=== PATIENT | female | born 1935 | race Caucasian/White ===

== ENCOUNTER 2017-03-14 22:41 | Inpatient (IN) | payer OTHER ==
[~2017-03-14] VITALS: Ht 152.4 cm; Wt 59.0 kg
[~2017-03-14 22:41] MED LIST: AMITRIPTYLINE H25 MG PO; ASPIRIN81 M2 PO; ATIVAN1 MG PO; BABY ASPIRIN81 MG PO; HYDROCHLOROTH12.5 M3 PO; HYDROCODON-ACE1 EAC7 PO; LORAZEPAM1 MG PO; LOVENOX40 MG/0.4 SC; METOCLOPRAM5 MG/1 M1 PO; MILK OF MAGNESI10 ML PO; POTASSIUM CHLO10 ME4 PO; PRAVASTATIN SOD40 MG PO; SENNA-TIME S T1 EACH PO; THERAGRAN1 TABLET PO; TOPROL XL25 MG PO
[2017-03-14 23:06] LABS: HEMATOCRIT 44.3 % (36.0-46.0); MCH 31.5 PG (29.0-34.0); MCV 95.7 FL (83-99); MEAN PLAT.VOLUME 10.3 uM^3 (9.5-12.4); PLATELET COUNT 257 K/uL (156-360); RBC DIS.WIDTH-CV 13.5 % (11.8-14.6); RBC DIS.WIDTH-SD 47.5 % (39-53); RED BLOOD COUNT 4.63 M/uL (3.80-5.20); WHITE BLOOD COUNT 21.9 K/uL (4.1-10.2)
[2017-03-14 23:17] LABS: CHLORIDE 102 mEq/L (99-109); POTASSIUM 3.5 mEq/L (3.7-5.4); SODIUM 141 mEq/L (136-147)
[2017-03-14 23:19] LABS: GLUCOSE 264 mg/dL (70-99)
[2017-03-14 23:20] LABS: ANION GAP 15 MEQ/L (2-14)
[2017-03-14 23:21] LABS: TOTAL BILIRUBIN 1.5 mg/dL (0.0-1.0)
[2017-03-14 23:23] LABS: ALKALINE PHOSPHATASE 61 IU/L (3-129); GFR ESTIMATE (CALCULATED) 46 mL/min/
[2017-03-14 23:24] LABS: UREA NITROGEN (BUN) 24 mg/dL (9-23)
[2017-03-14 23:26] LABS: CREATINE KINASE 158 IU/L (1-294); LIPASE 26 U/L (1.0-51.0); TOTAL CK 158 IU/L (1-294)
[2017-03-14 23:32] LABS: CK-MB 14.7 ng/mL (0.0-4.9)
[2017-03-14 23:36] LABS: TROP-I INTERPRETATION POSITIVE; TROPONIN-I 0.64 ng/mL (0.0-0.30)
[2017-03-15 09:35] LABS: ANION GAP 9 MEQ/L (2-14); CHLORIDE 103 MEQ/L (99-109); GFR ESTIMATE (CALCULATED) 56 mL/min/; GLUCOSE 171 mg/dL (70-99); SAMPLE HEMOLYSIS CHECK 0; SAMPLE ICTERIC CHECK 0; SAMPLE LIPEMIA CHECK 0; SODIUM 139 MEQ/L (136-147); UREA NITROGEN (BUN) 26 mg/dL (9-23)
[2017-03-15 09:39] VITALS: BP 138/70
== END 2017-03-15 16:14 | DRG 64 ==
LOC: EME → EDBD 22:41 → EME 22:41 → 5EAST 03-15 01:26 → EDOF 03-15 01:26 → 5EAST 03-15 02:26
PROVIDERS: Emergency Medicine; Student in an Organized Health Care Education/Training Program
DX: I60.9 Nontraumatic subarachnoid hemorrhage, unspecified (principal); I61.5 Nontraumatic intracerebral hemorrhage, intraventricular; E78.5 Hyperlipidemia, unspecified; I10 Essential (primary) hypertension; F32.9 Major depressive disorder, single episode, unspecified; R40.20 Unspecified coma; R73.9 Hyperglycemia, unspecified; J96.00 Acute respiratory failure, unspecified whether with hypoxia or hypercapnia; R74.8 Abnormal levels of other serum enzymes; Z87.891 Personal history of nicotine dependence; D72.829 Elevated white blood cell count, unspecified; E87.2 Acidosis; Z51.5 Encounter for palliative care
CPT/HCPCS: 70450; 71010; 80048; 80053; 82550; 82553; 83605; 83690; 83880; 84484; 85027; 87040; 87070; 87205; 93005; 99281; 99285; J2060; J2270; J7030; J7050

== ENCOUNTER 2017-03-15 16:12 | Inpatient (IN) | payer OTHER | END 2017-03-15 21:19 | DRG 951 | LOC: 5EAST 16:12 | DX: Z51.5 Encounter for palliative care (principal); I60.9 Nontraumatic subarachnoid hemorrhage, unspecified; R40.20 Unspecified coma; I61.5 Nontraumatic intracerebral hemorrhage, intraventricular; I10 Essential (primary) hypertension; M81.0 Age-related osteoporosis without current pathological fracture; F41.9 Anxiety disorder, unspecified; E78.00 Pure hypercholesterolemia, unspecified; Z85.528 Personal history of other malignant neoplasm of kidney ==